=== PATIENT | female | born 1930 | race Caucasian/White ===

== ENCOUNTER 2017-05-18 19:36 | Emergency (ER) | payer BC ==
[~2017-05-18] VITALS: Ht 142.2 cm; Wt 63.0 kg
[~2017-05-18 19:36] MED LIST: ALEN70TA46 PO; AMLO1CAP61; ATOR10TA69 PO; FAMO20TA8 PO; METF500T; NAPR-679 PO; OCD PO
[2017-05-19] MEDS ORDERED: TRAMADOL 50MG TABLET PO ONE (00:45)
[2017-05-19 00:56] LABS: BASOPHILS % 0.7 % (0.0-2.0); EOSINOPHILS % 1.5 % (0.0-5.0); HEMATOCRIT. 36.8 % (36.0-48.0); HEMOGLOBIN. 11.9 g/dL (12.0-16.0); LYMPHOCYTES % 33.7 % (20.0-50.0); MEAN CORPUSCULAR VOLUME 86.2 fL (81.0-99.0); MEAN PLATELET VOLUME 8.8 fl (7.4-10.4); MONOCYTES % 10.4 % (2.0-8.0); NEUTROPHILS % 53.7 % (40.0-76.0); PLATELET 226 x1000/uL (130-400); RED BLOOD CELL COUNT 4.27 mill/uL (4.2-5.4); RED CELL DISTRIBUTION WIDTH 14.3 % (11.6-14.6)
[2017-05-19 01:02] LABS: CHLORIDE 110 mEq/L (98-107)
[2017-05-19 01:08] LABS: CARBON DIOXIDE 26 mEq/L (21-32)
[2017-05-19] MEDS ORDERED: DIATR MEGLU/DIATRIZOATE SOLN 30ML ONE (01:11)
[2017-05-19 08:40] VITALS: BP 128/63
== END 2017-05-19 08:40 | disposition home or self-care (01) ==
LOC: ER 20:42
DX: K80.20 Calculus of gallbladder without cholecystitis without obstruction (principal); I10 Essential (primary) hypertension; K21.9 Gastro-esophageal reflux disease without esophagitis; E11.9 Type 2 diabetes mellitus without complications; M19.90 Unspecified osteoarthritis, unspecified site
CPT/HCPCS: 36415; 74176; 80048; 85025; 99285; Z7610; Q9963

== ENCOUNTER 2017-09-14 10:37 | Emergency (ER) | payer BC, MEDICAID ==
[~2017-09-14] VITALS: Ht 124.5 cm; Wt 64.0 kg
[2017-09-14] MEDS ORDERED: ACETAMINOPHEN 325MG TABLET PO ONE (11:15)
[2017-09-14 14:16] VITALS: BP 145/68
[2017-09-14] MEDS ORDERED: ACETAMINOPHEN 325MG TABLET ONE (15:45)
== END 2017-09-14 14:17 | disposition home or self-care (01) ==
LOC: ER 10:37
DX: M48.54XA Collapsed vertebra, not elsewhere classified, thoracic region, initial encounter for fracture (principal); M54.2 Cervicalgia; M81.0 Age-related osteoporosis without current pathological fracture; R51 Headache; K21.9 Gastro-esophageal reflux disease without esophagitis; I10 Essential (primary) hypertension; E11.9 Type 2 diabetes mellitus without complications; M19.90 Unspecified osteoarthritis, unspecified site; Z79.84 Long term (current) use of oral hypoglycemic drugs; W06.XXXA Fall from bed, initial encounter; Y93.89 Activity, other specified; Y92.89 Other specified places as the place of occurrence of the external cause; Y99.8 Other external cause status
CPT/HCPCS: 70450; 72070; 72125; 99284; L0172